=== PATIENT | female | born 1965 | race Caucasian/White ===

== ENCOUNTER → 2017-03-31 | Outpatient (CLI) | payer MEDICAID | LOC: CARD 13:30 | PROVIDERS: ATTEND Internal Medicine Cardiovascular Disease | DX: R09.89 Other specified symptoms and signs involving the circulatory and respiratory systems (principal); R06.02 Shortness of breath; I10 Essential (primary) hypertension; E78.4 Other hyperlipidemia; Z72.0 Tobacco use | CPT/HCPCS: 93306 ==

== ENCOUNTER → 2017-04-01 | Outpatient (CLI) | payer MEDICAID, OTHER ==
--- NOTE | 2017-04-01 14:28 | Diagnostic Imaging Report ---
EXAMINATION: Bilateral lower extremity duplex venous ultrasound. TECHNIQUE: DVT protocol. Multiple sonographic images with color Doppler and waveform interrogation were performed of the lower extremity veins, bilaterally, with compression and augmentation maneuvers. INDICATION: Bilateral leg edema. FINDINGS: The lower extremity veins from the common femoral veins to below the knee veins were examined with normal color-flow, compressibility and normal waveform demonstrated. The great saphenous vein bilaterally is patent. IMPRESSION: No evidence of DVT in either lower extremity. Dictated by: Dictated on workstation # [id number]
--- NOTE | 2017-04-01 19:13 | Diagnostic Imaging Report ---
PROCEDURE: US Carotid Duplex Bilateral. TECHNIQUE: Multiple real-time grayscale images were obtained over the carotid arteries in various projections bilaterally. Additional duplex Doppler and color Doppler images were also obtained. INDICATION: Left carotid bruit. FINDINGS: There is minimal atherosclerotic plaque seen on grayscale images. Color Doppler demonstrates patency of the common, internal and external carotid arteries on both sides. The vertebral arteries demonstrate antegrade flow bilaterally. Peak systolic velocities in the right ICA are 81, 78, and 93 cm/s and on the left 74, 66 and 82 cm/s. ICA/CCA ratios are up to 1.2 on the right side and 1.0 on the left. IMPRESSION: Minimal atherosclerotic plaque in the carotid arteries with the velocities obtained suggestive of underlying stenosis in the range of 0-40% bilaterally. Dictated by: Dictated on workstation # [id number]
== END ==
LOC: RAD 12:52
PROVIDERS: ATTEND Internal Medicine Cardiovascular Disease
DX: R09.89 Other specified symptoms and signs involving the circulatory and respiratory systems (principal); I10 Essential (primary) hypertension; E78.4 Other hyperlipidemia; R06.02 Shortness of breath; M79.89 Other specified soft tissue disorders; Z72.0 Tobacco use
CPT/HCPCS: 93880; 93970

== ENCOUNTER → 2017-04-06 | Outpatient (CLI) | payer MEDICAID, OTHER ==
[~2017-04-06] VITALS: Ht 162.6 cm; Wt 69.4 kg
[~2017-04-06] MED LIST: CATHETER FLUSH 10 ML SYR IV PRN; REGADENOSON 0.4 MG/5 ML SYR (LEXISCAN) IV ONE
[2017-04-06 13:01] VITALS: BP 155/89
[2017-04-06 13:08] VITALS: BP 136/83
--- NOTE | 2017-04-07 14:01 | STRESS TEST ---
DATE OF SERVICE: 04/06/2017 Resting and post-regadenoson Technetium-99m tetrofosmin SPECT CT imaging. ORDERING PHYSICIAN: Dr. Guadalupe. CLINICAL DIAGNOSIS: Shortness of breath. Baseline images were carried out after injection of 10.41 mCi of Technetium-99m Tetrofosmin. This was followed by 0.4 mg of regadenoson and 31.1 mCi of Technetium-99m Tetrofosmin for stress imaging. The electrocardiogram showed sinus rhythm at baseline and it did not change significantly with the regadenoson infusion. The patient noted some headache and nausea after regadenoson infusion, which resolved in a few minutes. Review of images at rest and following stress does not indicate any significant perfusion defects consistent with myocardial ischemia or infarction. Gated images show normal global left ventricular systolic function with normal regional wall motion. Left ventricular ejection fraction is calculated to be 71%. Left ventricular end-diastolic volume is 42 mL. TID is absent (0.99). CONCLUSIONS: 1. No evidence of significant myocardial ischemia or infarction on this study. 2. Normal regional wall motion. 3. Normal global left ventricular systolic function with a calculated ejection fraction of 71%. 4. Normal left ventricular cavity size. Job ID: [id number] DocumentID: [id number] Dictated Date: 04/07/2017 09:32:48 Serging Machine Operator Automatic Date: 04/07/2017 10:18:03 Dictated By: MALOU GUADAULPE MD, MA, FACP, FACC,
== END ==
LOC: CARD 11:43
PROVIDERS: ATTEND Internal Medicine Cardiovascular Disease
DX: I10 Essential (primary) hypertension (principal); R09.89 Other specified symptoms and signs involving the circulatory and respiratory systems; R06.02 Shortness of breath; E78.4 Other hyperlipidemia; Z72.0 Tobacco use
CPT/HCPCS: 78452; 93017

== ENCOUNTER → 2022-02-20 | Outpatient (CLI) | payer MEDICARE, MEDICAID ==
[2022-02-20 13:25] LABS: BASOPHILS # (AUTO) 0.1 10^3/uL (0.0-0.1); BASOPHILS % (AUTO) 1 % (0-10); EOSINOPHILS # (AUTO) 0.4 10^3/uL (0.0-0.3); EOSINOPHILS % (AUTO) 3 % (0-10); HEMATOCRIT 37 % (35-52); HEMOGLOBIN 12.2 g/dL (11.5-16.0); LYMPHOCYTES # (AUTO) 3.5 10^3/uL (1.0-4.0); LYMPHOCYTES % (AUTO) 27 % (12-44); MEAN CORPUSCULAR HEMOGLOBIN 31 pg (25-34); MEAN CORPUSCULAR HGB CONC 33 g/dL (32-36); MEAN CORPUSCULAR VOLUME 94 fL (80-99); MEAN PLATELET VOLUME 9.8 fL (9.0-12.2); MONOCYTES # (AUTO) 1.2 10^3/uL (0.0-1.0); MONOCYTES % (AUTO) 10 % (0-12); NEUTROPHILS # (AUTO) 7.6 10^3/uL (1.8-7.8); NEUTROPHILS % (AUTO) 59 % (42-75); PLATELET COUNT 287 10^3/uL (130-400); WHITE BLOOD COUNT 12.8 10^3/uL (4.3-11.0)
[2022-02-20 13:52] LABS: ALBUMIN 3.9 GM/DL (3.2-4.5); BILIRUBIN,TOTAL 0.2 MG/DL (0.1-1.0); CREATININE SERUM 1.1 MG/DL (0.60-1.30); POTASSIUM 4.2 MMOL/L (3.6-5.0); TOTAL PROTEIN 7.9 GM/DL (6.4-8.2)
== END ==
LOC: LAB FS 12:58
PROVIDERS: ATTEND Nurse Practitioner Family
DX: I95.9 Hypotension, unspecified (principal)
CPT/HCPCS: 36415; 80053; 85025

== ENCOUNTER 2022-06-17 19:26 | Emergency (ER) | payer OTHER, MEDICAID ==
[~2022-06-17] VITALS: Ht 162.5 cm; Wt 86.3 kg
--- NOTE | 2022-06-17 19:41 | ED Lower Extremity ---
General Stated Complaint: L FOOT PAIN History of Present Illness Date Seen by Provider: Jun 17, 2022 Time Seen by Provider: 19:40 Initial Comments 56-year-old female presents with left foot injury. 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 That she was only wearing house shoes. That she tried ibuprofen but did not help with the pain. Patient presents here because it just hurts to bear weight. She denies any other injury. She reports that it was probably around a 700 pound cow that stepped on her foot. Allergies and Home Medications Allergies Coded Allergies: No Known Drug Allergies (Unverified , 04/06/17) Patient Home Medication List Home Medication List Reviewed: Yes Review of Systems Constitutional: no symptoms reported EENTM: no symptoms reported Respiratory: no symptoms reported Cardiovascular: no symptoms reported Gastrointestinal: no symptoms reported Genitourinary: no symptoms reported Musculoskeletal: see HPI Skin: see HPI Psychiatric/Neurological: No Symptoms Reported Physical Exam Vital Signs Capillary Refill : Height, Weight, BMI Height: 5'4.00" Weight: 153lbs. 0.0oz. [id number]; 26.3 BMI Method: General Appearance: WD/WN, no apparent distress Neck: full range of motion, supple Cardiovascular: normal peripheral pulses, regular rate, rhythm Respiratory: chest non-tender, lungs clear, normal breath sounds Gastrointestinal: non tender, soft Ankles: bilateral ankle non-tender, bilateral ankle normal inspection, bilateral ankle normal range of motion Feet: left foot ecchymosis, left foot pain, left foot swelling Neurologic/Psychiatric: alert, normal mood/affect, oriented x 3 Skin: ecchymosis (Mild medial distal left foot) Progress/Results/Core Measures Results/Orders My Orders Orders - NATALIO STAFFORD DO Foot 3 View Left (06/17/22 19:42) Hydrocodone/Apap 5/325 Tablet (Lortab 5 (06/17/22 20:15) Progress Progress Note : Progress Note Patient with no acute fracture noted on x-ray. Patient with crush injury/contusion. Patient can use Tylenol, ibuprofen and topical lidocaine for pain control along with elevation and ice. She should follow-up with her primary care provider in 1 week if symptoms are not starting to improve for reevaluation. Patient stable discharged home Diagnostic Imaging Diagonstic Imaging: Xray Comments Date of Exam:06/17/22 FOOT 3 VIEW LEFT INDICATION: Foot pain. Stepped on by a cow. FINDINGS: Alignment of the left foot is normal. There is no joint dislocation. There are no findings of fracture or cortical disruption. There is no suspicious bone lesion. There is no focal soft tissue abnormality. IMPRESSION: 1. No acute process evident within the left foot. Reviewed: Reviewed by Me, Reviewed/Discussed Departure Impression Primary Impression: Contusion of left foot, initial encounter Additional Impression: Crush injury of left foot Qualified Codes: S97.82XA - Crushing injury of left foot, initial encounter Disposition: HOME, SELF-CARE Condition: Stable Departure-Patient Inst. Referrals: RADHA WHIPPLE APRN (PCP) Primary Care Physician [facility] (Family) Primary Care Physician Patient Instructions: Crush Injury, Contusion (DC) Add. Discharge Instructions: Keep foot elevated when not ambulating Ice for 20 minutes at a time 4-5 times daily for the next 48 hours Tylenol or ibuprofen as needed for pain 4% topical lidocaine with menthol cream or gel use as directed on package Follow-up with your primary care provider if symptoms have not improved over the next week for repeat evaluation NATALIO STAFFORD DO Jun 17, 2022 19:40
--- NOTE | 2022-06-17 20:06 | Diagnostic Imaging Report ---
INDICATION: Foot pain. Stepped on by a cow. FINDINGS: Alignment of the left foot is normal. There is no joint dislocation. There are no findings of fracture or cortical disruption. There is no suspicious bone lesion. There is no focal soft tissue abnormality. IMPRESSION: 1. No acute process evident within the left foot. Dictated by: Dictated on workstation # [id number]
[2022-06-17] MEDS ORDERED: HYDROcodone/APAP 5 MG/325 MG (LORTAB) TAB PO ONE (20:15)
[2022-06-17 20:22] VITALS: BP 131/88
== END 2022-06-17 20:22 | disposition home or self-care (01) ==
LOC: EDUNIT# 19:26 → ER FS 19:27
DX: S97.82XA Crushing injury of left foot, initial encounter (principal); Z28.310 Unvaccinated for COVID-19; W55.29XA Other contact with cow, initial encounter
CPT/HCPCS: 73630